=== PATIENT | female | born 1960 | race Caucasian/White ===

== ENCOUNTER 2025-08-07 07:24 | Emergency (ER) | payer OTHER, SELFPAY ==
[2025-08-07 07:27] VITALS: BP 164/86
--- NOTE | 2025-08-07 08:00 | ED.GENMED ---
History of Present Illness
General
Chief Complaint: Fainting Sensation
Source: patient
Exam Limitations: none
Time Seen by Provider: 08/07/25 07:33
Nursing documentation reviewed up to this point in time: agreed with
History of Present Illness
History of Present Illness:
65-year-old female type II diabetic diet controlled previously lost weight got her A1c down with diet and supplements she relapsed sugars been going up weights been going up restarted to her diet including fasting and numerous supplements recently
she has had a few episodes of dizziness started after sneezing, no nausea no vomiting no chest pain no shortness of breath no headache no slurred speech yesterday started when she was eating a protein shake today when she was having coffee without
any sugar she wonders if her supplements could be causing her symptoms tells me she has never had hypoglycemia before
Past History
Past History
ED Past Medical History: None and NIDDM
Social History
Tobacco: Non-smoker
Alcohol: None
Drug: None
Personal:
Living: with family
Employment: Employed
Family History
Family History: Negative Diabetes, Hypertension or CAD
Phy Exam
Physical Exam
Physical Exam:
Physical Exam
General: no apparent distress, not acutely ill
Neck: No tongue bite
Heart: s1/s2 regular rate and rhythm, no murmur. equal radial pulses.
Lungs: no acute respiratory distress. clear bilaterally
Abdomen: Nontender
Neuro: alert and oriented. no focal neurological deficits clear speech no facial palsy normal [id number]
Skin: no rash
Psychiatric: well kept. interactive and cooperative
Extremities: no edema.
Course
Orders/Labs/Results
Orders:
Orders
08/07/25 07:41
Electrocardiogram (*1) Urgent
Reason for Study: Vertigo / Dizzy
EKG- Treatment ONCE
08/07/25 08:01
Complete Blood Count/With Diff Urgent
Comprehensive Metabolic Panel Urgent
Magnesium Urgent
Troponin I Urgent
08/07/25 08:04
0.9% Sodium Chloride 1000 ml [Nss] 1,000 ml IV BOLUS
08/07/25 11:20
Ondansetron Injectable [Zofran] 4 mg IV NOW STA
Abnormal Lab Results
08/07/25
08:01
RBC 4.16 L 10^6/uL
(4.20-5.40)
MCH 31.3 H pg
(27.0-31.0)
MPV 10.9 H fL
(7.4-10.4)
Absolute Lymphs (auto) 3.5 H 10^3/uL
(1.2-3.4)
Neutrophils % 35.8 L %
(42.2-75.2)
Lymphocytes % 56.2 H %
(20.5-51.1)
Sodium 134 L mmol/L
(135-145)
BUN 22 H mg/dl
(7-17)
Glucose 251 H mg/dl
(70-99)
08/07/25 08:01
08/07/25 08:01
Vital Signs
Initial and Last Documented VS:
Initial Vital Signs
Temp Pulse Resp BP Pulse Ox
98.1 F 61 16 164/86 96
08/07/25 07:27 08/07/25 07:27 08/07/25 07:27 08/07/25 07:27 08/07/25 07:27
Last Documented Vital Signs
Temp Pulse Resp BP Pulse Ox
98.1 F 60 16 151/78 98
08/07/25 07:27 08/07/25 10:59 08/07/25 10:59 08/07/25 10:59 08/07/25 10:59
MDM/Problems Addressed
Differential Diagnosis Includes:
Hypoglycemia electrolyte abnormality arrhythmia doubt CVA
MDM/Problems Addressed:
Symptoms appear to be corresponding to her fasting and new supplements
Chronic conditions affecting care: DM
Acute Exacerbation and/or Progression of Chronic Illness: DM
*Pulse Oximetry
SaO2: 96
Oxygen Mode of Delivery: Room air
Patient hypoxic: no
*Security Services Specialist Interpretation
Rate: normal
Interpretation: normal
Heart Rate: 78
Rhythm: sinus
*Critical Care Note
Total Time (30-74mins, 75-104mins- exclusive of procedures): Not Applicable
Update Note
Update Note:
1120 update patient little nauseous feeling better, labs are noted nonfocal neurologic exam will have her back off her supplements follow-up with her PCP and box chipper
ED Attending Note
-
Portions of this chart may have been created with voice recognition software.� Occasional wrong word or��sound alike� substitutions may have occurred due to the inherent limitations of voice recognition software.
Discharge Plan
Departure
Patient Disposition: Home (Routine Discharge)
Date of Disposition: 08/07/25
Time of Disposition: 11:21
Patient with high blood pressure during this ER visit?: No
Condition: Good
Discharge Problem:
Nausea
Instructions: Near Fainting (DC)
Prescriptions:
No Action
ibuprofen [Advil] 200 MG tablet
400 mg PO Q4HPRN PRN (Reason: pain)
ketorolac 10 MG tablet
10 mg PO Q6HPRN PRN (Reason: PAIN) Qty: 7 0RF
ibuprofen 600 MG tablet
600 mg PO TIDPRN PRN (Reason: pain) Qty: 30 0RF
hydrocodone-acetaminophen 1 TABLET tablet
1 tab PO Q4HPRN PRN (Reason: pain) Qty: 15 0RF
ondansetron 4 MG tablet,disintegrating
4 mg PO TIDPRN PRN (Reason: nausea) Qty: 12 0RF
Referrals:
NONE,* [Family Provider, Internal Medicine]
Activity Restrictions/Additional Instructions:
Zofran as needed for nausea or vomiting
Limit your supplement use as we discussed
Discuss your symptoms with your box chipper
Interventions
Interventions:
*Risk Screen - Suicide Last Done: 08/07/25 07:27
*General Assessment Last Done: 08/07/25 07:27
*Neglect/Abuse Screening Last Done: 08/07/25 07:27
*ED COVID-19 Vaccine History Last Done: 08/07/25 07:44
*ED Influenza Vaccine History Last Done: 08/07/25 07:44
[facility] Risk Assessment Tool Last Done: 08/07/25 07:44
ED- Cardiac Assessment Last Done: 08/07/25 07:44
ED- Neurological Assessment Last Done: 08/07/25 07:44
Discharge Date and Time
Print Language: BULGARIAN
[2025-08-07] MEDS: NSS 1000 IV (08:09)
[2025-08-07 08:27] LABS: Hematocrit 37.5 % (37.0-47.0); Hemoglobin 13.0 g/dL (12.0-16.0); Mean Corp Hgb Conc. 34.7 g/dL (33.0-37.0); Mean Corpuscular Volume 90.1 fL (81.0-99.0); Platelet Count 209 10^3/uL (130-400); Red Cell Dist. Width 11.9 % (11.5-14.5)
[2025-08-07 08:36] LABS: ALT (SGPT) 24 U/L (0-35); AST (SGOT) 20 U/L (14-36); Albumin 4.1 g/dl (3.5-5.0); Alkaline Phosphatase 84 U/L (38-126); Blood Urea Nitrogen 22 mg/dl (7-17); Calcium 9.0 mg/dl (8.4-10.2); Carbon Dioxide 27 mmol/L (22-30); Chloride 101 mmol/L (98-107); Glucose 251 mg/dl (70-99); Magnesium 1.9 mg/dl (1.6-2.3); Potassium 4.3 mmol/L (3.5-5.1); Sodium 134 mmol/L (135-145); Total Protein 7.0 g/dl (6.3-8.2); eGFR > 60.00
[2025-08-07 08:44] LABS: Troponin I < 0.012 ng/ml
[2025-08-07 09:42] LABS: Nucleated Red Blood Cells % 0 %
[2025-08-07 10:59] VITALS: BP 151/78
[2025-08-07] MEDS: ZOFRAN 4 MG IV (11:25)
== END 2025-08-07 11:45 | disposition home or self-care (01) ==
LOC: EMR 07:24
PROVIDERS: EMERGENCY PHYSICIAN Emergency Medicine
DX: R11.0 Nausea (principal); E11.9 Type 2 diabetes mellitus without complications
CPT/HCPCS: 99284; 96374; 96361; 80053; 83735; 84484; 85025; 93005